=== PATIENT | male | born 1970 | race Caucasian/White ===

== ENCOUNTER 2020-02-08 14:25 | Emergency (ER) | payer BC, OTHER ==
[2020-02-08] MEDS ORDERED: FAMOTIDINE INJ/PF 20 MG/2 ML SDV IV ONE ×2 (16:14→19:30)
[2020-02-08] MEDS ORDERED: ONDANSETRON HCL INJ/PF 4 MG/2 ML SDV IV ONE ×2 (16:14→19:30)
[2020-02-08] MEDS ORDERED: NORMAL SALINE 1000 ML 1,000 ML IV ONE (16:16)
--- NOTE | 2020-02-08 16:16 | ER Document Report ---
ED Medical Screen (RME) - General Chief Complaint: Abdominal Pain Stated Complaint: ABDOMINAL PAIN Time Seen by Provider: 02/08/20 16:09 Primary Care Provider: BILLY FRENCH [Primary Care Provider] - Follow up as needed Mode of Arrival: Ambulatory Information source: Patient Notes: 49-year-old male patient presenting to the emergency department chief complaint of vomiting, diaphoresis and epigastric pain. Patient denies any chest pain or shortness of breath but reports that before he was about to vomit he felt like he may pass out and became diaphoretic. Lung sounds clear and equal bilaterally. Heart sounds S1-S2 present, normal rate, normal rhythm. I have greeted and performed a rapid initial assessment of this patient. A comprehensive ED assessment and evaluation of the patient, analysis of test results and completion of the medical decision making process will be conducted by additional ED providers. I have specifically instructed the patient or f amily members with the patient to immediately return to any nursing staff should anything change in the patient's condition or with their chief complaint. - Related Data Allergies/Adverse Reactions: No Known Allergies Allergy (Unverified 02/08/20 16:13) Home Medications: lopressor 200mg po daily, lisinopril 40 mg daily, metformin 1000mg po BID, Crestor qhs, zoloft 50mg po Past Medical History - Social History Chew tobacco use (# tins/day): No Frequency of alcohol use: Occasional Drug Abuse: None Physical Exam - Vital signs Vitals: Temp Pulse Resp BP Pulse Ox 98.6 F 78 14 155/88 H 95 02/08/20 14:02/08/20 14:02/08/20 14:02/08/20 14:02/08/20 14:31 Course - Vital Signs Vital signs: Temp Pulse Resp BP Pulse Ox 98.6 F 78 14 155/88 H 95 02/08/20 14:02/08/20 14:02/08/20 14:02/08/20 14:02/08/20 14:31 Doctor's Discharge - Discharge Referrals: BILLY FRENCH [Primary Care Provider] - Follow up as needed
--- NOTE | 2020-02-08 16:30 | RADIOLOGY REPORT (SQ) ---
EXAM DESCRIPTION: CHEST SINGLE VIEW IMAGES COMPLETED DATE/TIME: 02/08/2020 4:20 pm REASON FOR STUDY: diaphoresis/abd pain COMPARISON: 11/15/2010 EXAM PARAMETERS: NUMBER OF VIEWS: One view. TECHNIQUE: Single frontal radiographic view of the chest acquired. RADIATION DOSE: NA LIMITATIONS: None. FINDINGS: LUNGS AND PLEURA: Mild perihilar and basilar interstitial airspace disease. Possibly vadim a. No effusions. No consolidation or pneumothorax. MEDIASTINUM AND HILAR STRUCTURES: No masses. Contour normal. HEART AND VASCULAR STRUCTURES: Heart normal in size. Normal vasculature. BONES: No acute findings. HARDWARE: None in the chest. OTHER: No other significant finding. IMPRESSION: Mild perihilar and basilar interstitial airspace disease. This could be chronic althoug h mild acute interstitial edema cannot be excluded. TECHNICAL DOCUMENTATION: JOB ID: [id number] 2010 [employer]- All Rights Reserved Reading location - IP/workstation name: [email or web address]
--- NOTE | 2020-02-08 17:30 | EKG REPORT ---
SEVERITY:- NORMAL ECG - SINUS RHYTHM : Confirmed by: Ayanna Lombardi MD 08-Feb-2020 17:29:18
[2020-02-08 17:42] LABS: ABSOLUTE LYMPHOCYTES (AUTO) 1.6 10^3/uL (0.5-4.7); ABSOLUTE MONOCYTES (AUTO) 0.4 10^3/uL (0.1-1.4); BASOPHILS % (AUTO) 0.2 % (0-2); EOSINOPHILS % (AUTO) 0.4 % (0-6); HEMATOCRIT 41.7 % (37.9-51.0); HEMOGLOBIN 14.3 g/dL (13.5-17.0); LYMPHOCYTES % (AUTO) 16.1 % (13-45); MEAN CORPUSCULAR HEMOGLOBIN 32.5 pg (27.0-33.4); MEAN CORPUSCULAR HGB CONC 34.3 g/dL (32.0-36.0); MEAN CORPUSCULAR VOLUME 95 fl (80-97); MONOCYTES % (AUTO) 3.8 % (3-13); PLATELET COUNT 189 10^3/uL (150-450); RED CELL DISTRIBUTION WIDTH 12.5 % (11.5-14.0); SEGMENTED NEUTROPHILS % (AUTO) 79.5 % (42-78); TOTAL CELLS COUNTED % (AUTO) 100 %
[2020-02-08 18:02] LABS: ALBUMIN 4.6 g/dL (3.5-5.0); ALKALINE PHOSPHATASE 71 U/L (38-126); ANION GAP 7 (5-19); ASPARTATE AMINO TRANSFERASE 29 U/L (17-59); BILIRUBIN,TOTAL 0.5 mg/dL (0.2-1.3); BLOOD UREA NITROGEN 12 mg/dL (7-20); CALCIUM 9.8 mg/dL (8.4-10.2); CARBON DIOXIDE 28 mmol/L (22-30); CHLORIDE 99 mmol/L (98-107); GLUCOSE 124 mg/dL (75-110); POTASSIUM 4.9 mmol/L (3.6-5.0); TOTAL PROTEIN 7.4 g/dL (6.3-8.2)
[2020-02-08] MEDS ORDERED: LIDOCAINE 2% VISCOUS SOLN 15 ML UDCUP PO ONE (19:26)
[2020-02-08] MEDS ORDERED: MAG HYDROX/AL HYDROX/SIMETH SUSP 30 ML UDCUP PO ONE (19:26)
[2020-02-08] MEDS ORDERED: ONDANSETRON ODT 4 MG TAB (6 TAB/ER DISP) PO PRN (19:27)
[2020-02-08] MEDS ORDERED: METOCLOPRAMIDE HCL ORAL SOLN 10 MG/10 ML UDCUP PO ONE (19:27)
--- NOTE | 2020-02-08 19:27 | ER Document Report ---
ED GI/ - General Chief Complaint: Abdominal Pain Stated Complaint: ABDOMINAL PAIN Time Seen by Provider: 02/08/20 16:09 Primary Care Provider: BILLY FRENCH [NO LOCAL MD] - Follow up as needed Mode of Arrival: Ambulatory Information source: Patient Notes: Patient is a 49-year-old male presenting to the emergency department with complaints of upper abdominal pain in the epigastric region with burning up into his throat. He reports this morning he had 2 episodes of vomiting and 2 episodes of diarrhea. He states that he became diaphoretic while he was vomiting. He denies taking any medications for his symptoms. He reports that he is a non-smoker and feels better now. - Related Data Allergies/Adverse Reactions: No Known Allergies Allergy (Unverified 02/08/20 16:13) Home Medications: lopressor 200mg po daily, lisinopril 40 mg daily, metformin 1000mg po BID, Crestor qhs, zoloft 50mg po Past Medical History - General Information source: Patient - Social History Smoking Status: Current Every Day Smoker Chew tobacco use (# tins/day): No Frequency of alcohol use: Occasional Drug Abuse: None Family History: Reviewed & Not Pertinent Patient has homicidal ideation: No - Past Medical History Cardiac Medical History: Reports: Hx Hypertension Review of Systems - Review of Systems Constitutional: denies: Fever EENT: No symptoms reported Cardiovascular: No symptoms reported Respiratory: No symptoms reported Gastrointestinal: See HPI -: Yes All other systems reviewed and negative Physical Exam - Vital signs Vitals: Temp Pulse Resp BP Pulse Ox 98.6 F 78 14 155/88 H 95 02/08/20 14:31 02/08/20 14:31 02/08/20 14:31 02/08/20 14:31 02/08/20 14:31 - Notes Notes: PHYSICAL EXAMINATION: GENERAL: Well-appearing, well-nourished and in no acute distress. HEAD: Atraumatic, normocephalic. EYES: Pupils equal round and reactive to light, extraocular movements intact, sclera anicteric, conjunctiva are normal. ENT: Nares patent, oropharynx clear without exudates. Moist mucous membranes. NECK: Normal range of motion, supple without lymphadenopathy LUNGS: Breath sounds clear to auscultation bilaterally and equal. No wheezes rales or rhonchi. HEART: Regular rate and rhythm without murmurs ABDOMEN: Soft, nontender, nondistended abdomen. No guarding, no rebound. No masses appreciated. Musculoskeletal: Normal range of motion, no pitting or edema. No cyanosis. NEUROLOGICAL: Cranial nerves grossly intact. Normal speech, normal gait. Normal sensory, motor exams PSYCH: Normal mood, normal affect. SKIN: Warm, Dry, normal turgor, no rashes or lesions noted. Course - Re-evaluation Re-evalutation: Laboratory 02/08/20 02/08/20 02/08/20 17:12 17:12 17:12 WBC 10.0 RBC 4.40 Hgb 14.3 Hct 41.7 MCV 95 MCH 32.5 MCHC 34.3 RDW 12.5 Plt Count 189 Lymph % (Auto) 16.1 Ritchie % (Auto) 3.8 Eos % (Auto) 0.4 Baso % (Auto) 0.2 Absolute Neuts (auto) 8.0 Absolute Lymphs (auto) 1.6 Absolute Monos (auto) 0.4 Absolute Eos (auto) 0.0 Absolute Basos (auto) 0.0 Seg Neutrophils % 79.5 H Sodium 134.2 L Potassium 4.9 Chloride 99 Carbon Dioxide 28 Anion Gap 7 BUN 12 Creatinine 0.89 Est GFR ( Amer) > 60 Est GFR (MDRD) Non-Af > 60 Glucose 124 H Calcium 9.8 Total Bilirubin 0.5 Direct Bilirubin 0.0 Neonat Total Bilirubin Not Reportable Neonat Direct Bilirubin Not Reportable Neonat Indirect Bili Not Reportable AST 29 ALT 29 Alkaline Phosphatase 71 Troponin I < 0.012 Total Protein 7.4 Albumin 4.6 Chest X-Ray 02/08/20 16:13 IMPRESSION: Mild perihilar and basilar interstitial airspace disease. This could be chronic although mild acute interstitial edema cannot be excluded. EKG shows a sinus rhythm, rate 63, normal axis, QTc 447, and there are no ST segment elevations or depressions to suggest ischemia. Troponin undetectable. - Vital Signs Vital signs: Temp Pulse Resp BP Pulse Ox 98.8 F 72 18 141/93 H 95 02/08/20 20:05 02/08/20 20:05 02/08/20 20:05 02/08/20 20:05 02/08/20 20:05 - Laboratory Result Diagrams: 02/08/20 17:12 02/08/20 17:12 Laboratory results interpreted by me: 02/08/20 02/08/20 17:12 17:12 Seg Neutrophils % 79.5 H Sodium 134.2 L Glucose 124 H Discharge - Discharge Clinical Impression: Nausea and vomiting Qualifiers: Vomiting type: unspecified Vomiting Intractability: unspecified Qualified Code(s): R11.2 - Nausea with vomiting, unspecified Acid reflux Qualifiers: Esophagitis presence: with esophagitis Qualified Code(s): K21.0 - Gastro-esop hageal reflux disease with esophagitis Condition: Stable Disposition: HOME, SELF-CARE Additional Instructions: Reflux Disease (GERD) Gastro-Esophageal Reflux Disease (GERD) is caused by stomach acid refluxing back up into the esophagus. The valve at the end of the esophagus may be weak. This is common in persons with a hiatal hernia. GERD symptoms can include indigestion, chest pain, heartburn, or food "sticking." Certain foods, alcohol, and aspirin can make GERD worse. Treatment depends on the severity. Usually, antacids or acid-suppressing medicines are used. When the esophagus is acutely inflamed, the physician will often prescribe membrane-protective drugs such as Carafate. Some patients benefit from medication such as Reglan that tightens the valve at the top of the stomach. Avoid those foods that bring on your symptoms. For many people, these foods are coffee, chocolate, onions, garlic, and carbonated drinks. Don't use alcohol, aspirin, caffeine, or tobacco. Don't eat late at night -- within 4 hours of bedtime. Don't over-eat. If necessary, elevate the head of your bed about 4 inches so that stomach acid will not roll up into your esophagus. Call the doctor if you develop severe chest pain, inability to swallow fluids, fever, or worsening symptoms. The information above is regarding gastro esophageal reflux. The symptoms you are experiencing may be temporary and caused by the episodes of vomiting that you had. Try taking the Pepcid that I prescribed twice daily. Use the Zofran if needed for nausea. Return to the emergency department with worsening symptoms or development of fever. Prescriptions: Famotidine [Pepcid 20 mg Tablet] 20 mg PO BID #12 tablet Forms: Return to Work Referrals: LOCAL,NO [NO LOCAL MD] - Follow up as needed
[2020-02-08 20:05] VITALS: BP 141/93
== END 2020-02-08 20:05 | disposition home or self-care (01) ==
LOC: ER 14:25
DX: K21.0 Gastro-esophageal reflux disease with esophagitis (principal); R10.13 Epigastric pain; R11.2 Nausea with vomiting, unspecified; R19.7 Diarrhea, unspecified; R61 Generalized hyperhidrosis; I10 Essential (primary) hypertension; F17.200 Nicotine dependence, unspecified, uncomplicated; Z79.899 Other long term (current) drug therapy; Z79.4 Long term (current) use of insulin
CPT/HCPCS: 93005; 99284; 36415; 85025; 80053; 84484; 71045; 93010; J3490